=== PATIENT | female | born 1955 | race Caucasian/White ===

== ENCOUNTER 2016-07-29 15:11 | Emergency (ER) | payer BC ==
[~2016-07-29] VITALS: Ht 172.7 cm; Wt 80.8 kg
[2016-07-29 15:51] LABS: MCV 87.9 FL (83-99); MEAN PLAT.VOLUME 9.9 uM^3 (9.5-12.4); PLATELET COUNT 229 K/uL (156-360); RBC DIS.WIDTH-CV 13.6 % (11.8-14.6); RBC DIS.WIDTH-SD 42.9 % (39-53); RED BLOOD COUNT 4.55 M/uL (3.80-5.20); WHITE BLOOD COUNT 5.4 K/uL (4.1-10.2)
[2016-07-29 15:59] LABS: CHLORIDE 109 mEq/L (99-109); POTASSIUM 3.7 mEq/L (3.7-5.4); SODIUM 144 mEq/L (136-147)
[2016-07-29 16:01] LABS: GLUCOSE 111 mg/dL (70-99)
[2016-07-29 16:02] LABS: ANION GAP 10 MEQ/L (2-14); D-DIMER ELISA 0.19 mg/L FEU (< 0.57)
[2016-07-29 16:05] LABS: GFR ESTIMATE (CALCULATED) > 59 mL/min/; UREA NITROGEN (BUN) 18 mg/dL (9-23)
[2016-07-29 16:12] LABS: TROP-I INTERPRETATION NEGATIVE; TROPONIN-I < 0.01 ng/mL (0.0-0.30)
[2016-07-29 16:57] VITALS: BP 174/88
== END 2016-07-29 17:02 | disposition home or self-care (01) ==
LOC: EME 15:11
PROVIDERS: Nurse Practitioner Family
DX: S86.111A Strain of other muscle(s) and tendon(s) of posterior muscle group at lower leg level, right leg, initial encounter (principal); M25.512 Pain in left shoulder; I25.2 Old myocardial infarction; Z98.61 Coronary angioplasty status
CPT/HCPCS: 71020; 80048; 84484; 85027; 85379; 93005; 93971; 99281; 99285